=== PATIENT | male | born 1980 | race Caucasian/White ===

== ENCOUNTER 2018-09-23 15:31 | Emergency (ER) | payer MEDICAID ==
[~2018-09-23] VITALS: Ht 188 cm; Wt 89.3 kg
[2018-09-23] MEDS ORDERED: ONDANSETRON ODT 4 MG PO ONE (16:00)
[2018-09-23 16:42] LABS: BASOPHILS # (AUTO) 0.02 x10^3/uL (0-0.1); BASOPHILS % (AUTO) 0 % (0-1); EOSINOPHILS # (AUTO) 0.01 x10^3/uL (0-0.4); EOSINOPHILS % (AUTO) 0 % (1-7); LYMPHOCYTES # (AUTO) 1.17 x10^3/uL (1-3.4); LYMPHOCYTES % (AUTO) 19 % (22-44); MD NO; MEAN CORPUSCULAR HEMOGLOBIN 28.9 pg (27.5-34.5); MEAN CORPUSCULAR HGB CONC 33.9 g/dL (33.2-36.2); MEAN CORPUSCULAR VOLUME 85.2 fL (81-97); MEAN PLATELET VOLUME 7.7 fL (7.4-10.4); MONOCYTES # (AUTO) 0.71 x10^3/uL (0.2-0.8); MONOCYTES % (AUTO) 11 % (2-9); NEUTROPHILS % (AUTO) 70 % (42-75); PLATELET COUNT 255 x10^3/uL (130-400); RED BLOOD COUNT 5.66 x10^6/uL (4.38-5.82); RED CELL DISTRIBUTION WIDTH 13.2 % (9.4-14.8)
[2018-09-23] MEDS ORDERED: ONDANSETRON ODT 4 MG ONE (16:43)
[2018-09-23 16:49] LABS: ALBUMIN 3.8 g/dL (3.4-5.0); ANION GAP 8 mmol/L (5-15); CALCIUM 8.4 mg/dL (8.5-10.1); CHLORIDE 106 mmol/L (98-107)
[2018-09-23 16:54] LABS: ALANINE AMINOTRANSFERASE 30 U/L (12-78); ALKALINE PHOSPHATASE 87 U/L (45-117); BILIRUBIN,TOTAL 0.5 mg/dL (0.2-1.0); TOTAL PROTEIN 7.4 g/dL (6.4-8.2)
[2018-09-23] MEDS ORDERED: SODIUM CHLORIDE 0.9% 1,000ML IVBOLUS ONE (17:00)
[2018-09-23] MEDS ORDERED: PROMETHAZINE 25 MG/ML, 1ML IM ONE (17:00)
[2018-09-23] MEDS ORDERED: SODIUM CHLORIDE FLUSH 10ML SYR IVF ONE (17:00)
[2018-09-23 18:09] VITALS: BP 117/68
== END 2018-09-23 18:14 | disposition home or self-care (01) ==
LOC: ED 18:00
DX: A08.4 Viral intestinal infection, unspecified (principal); F17.200 Nicotine dependence, unspecified, uncomplicated
CPT/HCPCS: 36415; 80053; 83690; 85025; 96360; 99284; J7030; Q0162

== ENCOUNTER 2019-01-27 14:44 | Emergency (ER) | payer MEDICAID ==
[~2019-01-27] VITALS: Ht 188 cm; Wt 85.0 kg
[2019-01-27 16:16] LABS: RAPID INFLUENZA A Negative (Negative); RAPID INFLUENZA B Negative (Negative)
[2019-01-27 16:32] VITALS: BP 98/42
--- NOTE | 2019-01-27 16:32 | NUR ---
work note given with dc instruction pt understood vss stable
== END 2019-01-27 16:36 | disposition home or self-care (01) ==
LOC: ED 16:30
DX: J20.8 Acute bronchitis due to other specified organisms (principal); J02.9 Acute pharyngitis, unspecified; F17.200 Nicotine dependence, unspecified, uncomplicated
CPT/HCPCS: 71046; 87400; 99284

== ENCOUNTER 2019-10-03 13:21 | Emergency (ER) | payer MEDICAID, OTHER ==
[~2019-10-03] VITALS: Ht 188 cm; Wt 84.2 kg
[2019-10-03 14:00] VITALS: BP 91/64
[2019-10-03] MEDS ORDERED: KETOROLAC 30 MG/1 ML ONE (15:07)
[2019-10-03] MEDS ORDERED: KETOROLAC 30 MG/1 ML IM ONE (15:30)
== END 2019-10-03 15:15 | disposition home or self-care (01) ==
LOC: ED 15:00
DX: M77.9 Enthesopathy, unspecified (principal); M25.532 Pain in left wrist
CPT/HCPCS: 29260; 73110; 96372; 99283; J1885

== ENCOUNTER 2020-05-16 09:12 | Emergency (ER) | payer MEDICAID ==
[~2020-05-16] VITALS: Ht 188 cm; Wt 85.0 kg
[2020-05-16] MEDS ORDERED: LIDOCAINE-MPF 1%, 2ML ONE (10:55)
[2020-05-16] MEDS ORDERED: LIDOCAINE 1%, 10ML INFIL ONE (11:00)
--- NOTE | 2020-05-16 11:22 | NUR ---
SUSANNAH SCHMID AT BEDSIDE TO SUTURE PT.
[2020-05-16] MEDS ORDERED: NEOSPORIN OINT. PKT 1 PACKET ONE (11:30)
--- NOTE | 2020-05-16 12:07 | NUR ---
PT D/C'D PER ER PA-C ORDER. PT VERBALIZED UNDERSTANDING OF D/C INSTRUCTIONS, HAS ALL OWN BELONGINGS UPON D/C.
[2020-05-16 12:10] VITALS: BP 123/67
== END 2020-05-16 12:12 | disposition home or self-care (01) ==
LOC: ED 09:43
DX: S61.212A Laceration without foreign body of right middle finger without damage to nail, initial encounter (principal); X58.XXXA Exposure to other specified factors, initial encounter; Y93.89 Activity, other specified; Y92.488 Other paved roadways as the place of occurrence of the external cause; Y99.8 Other external cause status
CPT/HCPCS: 12001; 73140; 99283; J3490

== ENCOUNTER 2020-06-28 18:23 | Emergency (ER) | payer MEDICAID ==
[~2020-06-28] VITALS: Ht 188 cm; Wt 96.0 kg
--- NOTE | 2020-06-28 18:54 | NUR ---
PT CAME IN TODAY DUE TO LEFT SHOULDER PAIN, ORIGINATING AT SHOULDER, ALL MOVEMENT INCREASES PAIN, STARTED YESTERDAY AND GOT SIGNIFICANTLY WORSE TODAY. PT CMS INTACT, SENSATION INTACT, PULSES 2+, SKIN P/W/D, PT STATES PAIN IS A THROBBING 9/10 CURRENTLY,. PAIN IS STILL THERE WHEN NOT MOVING ARM BUT WORSENS WITH MOTION. IBUPROFEN OTC APPROXIMATELY 6 HOURS AGO, STATES "I TOOK LIKE THREE" PT PLACED ON SPO2/BP/ECG MONITORING. WCTM. WAITING FOR ERP EVAL.
--- NOTE | 2020-06-28 20:11 | NUR ---
Patient given discharge instructions and they have confirmed that they understand the instructions. Patient ambulatory with steady gait. nad, p/w/d. DENIES ADDITIONAL QUESTIONS OR NEEDS AT THIS TIME. NO BELONGINGS LEFT IN ROOM AFTER DC.
[2020-06-28 20:20] VITALS: BP 111/62
== END 2020-06-28 20:22 | disposition home or self-care (01) ==
LOC: ED 19:16
DX: M25.512 Pain in left shoulder (principal); R94.31 Abnormal electrocardiogram [ECG] [EKG]
CPT/HCPCS: 93005; 99283

== ENCOUNTER 2021-01-01 14:08 | Emergency (ER) | payer MEDICAID ==
[~2021-01-01] VITALS: Ht 190.5 cm; Wt 85.7 kg
[2021-01-01] MEDS ORDERED: KETOROLAC 30 MG/1 ML ONE (14:28)
[2021-01-01] MEDS ORDERED: SILVER SULF. CRM 1% , 25GM ONE (14:28)
[2021-01-01] MEDS ORDERED: DIPH,PERTUSS(ACELL),TET VAC/PF 0.5 ML IM-VACC ONE ×2 (14:29→14:30)
[2021-01-01] MEDS ORDERED: KETOROLAC 30 MG/1 ML IM ONE (14:30)
[2021-01-01] MEDS ORDERED: SILVER SULF. CRM 1%, 400GM TP ONE (14:30)
--- NOTE | 2021-01-01 14:35 | NUR ---
PT COME IN TODAY C/O RIGHT FOOT BURN. PT STATES AT APPROX 1200 TODAY HE SPILLED HOT GREASE ON HIS FOOT AT WORK. PROVIDER AT BEDSIDE. PLAN OF CARE DISCUSSED. MONITORS CONNECTED. CALL LIGHT W/IN REACH.
--- NOTE | 2021-01-01 14:35 | NUR ---
PROVIDER AT BEDSIDE FOR ASSESSMENT AND TO DISCUSS PLAN OF CARE.
[2021-01-01] MEDS ORDERED: SILVER SULF. CRM 1% , 25GM TP ONE (15:00)
--- NOTE | 2021-01-01 15:04 | NUR ---
ORDERED MEDICATIONS ADMINISTERED. SILVADENE CREAM APPLIED TO RIGHT TOES ORDERED. XERAFORM APPLIED. GAUZE APPLIED AND AREA WRAPPED. PT TOLERATED PROCEDURE W/O INCIDENT.
--- NOTE | 2021-01-01 15:05 | NUR ---
VACCINE INFORMATION SHEET GIVEN TO PT
--- NOTE | 2021-01-01 15:51 | NUR ---
CONTACTED PHARMACY REGARDING SILVADENE CREAM. DISCUSSED THAT THE PROVIDER WOULD LIKE TO HAVE THE 400GM DOSE IN ADDITION TO THE 25GM DOSE.
--- NOTE | 2021-01-01 16:12 | NUR ---
PT AMBULATED TO DISCHARGE W/STEADY GAIT. PT ENCOURAGED TO FOLLOWUP DISCUSSED. PT EDUCATED TO RETURN TO THE ED W/ WORSENING SYMPTOMS.
[2021-01-01 16:13] VITALS: BP 116/73
== END 2021-01-01 16:15 | disposition home or self-care (01) ==
LOC: ED 15:35
DX: T25.131A Burn of first degree of right toe(s) (nail), initial encounter (principal); T25.121A Burn of first degree of right foot, initial encounter; T31.0 Burns involving less than 10% of body surface; X08.8XXA Exposure to other specified smoke, fire and flames, initial encounter; Y93.89 Activity, other specified; Y92.89 Other specified places as the place of occurrence of the external cause; Y99.0 Civilian activity done for income or pay
CPT/HCPCS: 16020; 90471; 90715; 96372; 99284; J1885

== ENCOUNTER 2021-06-21 16:43 | Emergency (ER) | payer MEDICAID ==
[~2021-06-21] VITALS: Ht 188 cm; Wt 82.4 kg
[2021-06-21] MEDS ORDERED: CEFTRIAXONE 1,000 MG IM ONE (17:00)
--- NOTE | 2021-06-21 17:02 | NUR ---
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 UA COLLECTED AND SENT TO LAB.
--- NOTE | 2021-06-21 18:10 | NUR ---
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
[2021-06-21] MEDS ORDERED: CEFTRIAXONE 1,000 MG ONE (18:15)
--- NOTE | 2021-06-21 18:21 | NUR ---
PT MEDICATED PER EMAR, CONNECTED TO MONITORS. CALL LIGHT WITHIN REACH. AWAITING RECHECK
--- NOTE | 2021-06-21 18:47 | NUR ---
REPORT TO STEPHAN LEVI
[2021-06-21 19:00] VITALS: BP 126/70
--- NOTE | 2021-06-21 19:00 | NUR ---
FIRST ENCOUNTER WITH PATIENT. PATIENT LYING IN STRETCHER WATCHING TV. DENIES ANY NEEDS AT THIS TIME. AWAITING URINE RESULTS-PATIENT STATES HE ALREADY PROVIDED A URINE SAMPLE. VSS. BED IN LOW POSITION. CALL [place]GARA IN REACH. WILL CONTINUE TO MONITOR.
[2021-06-21 20:27] LABS: MICROSCOPIC INDICATED
--- NOTE | 2021-06-21 20:34 | NUR ---
Patient given discharge instructions and they have confirmed that they understand the instructions. Patient ambulatory with steady gait. NAD, all questions answered appropriately, denies additional needs at this time. No personal belongings left in room after discharge.
== END 2021-06-21 20:35 | disposition home or self-care (01) ==
LOC: ED 18:20
DX: N34.1 Nonspecific urethritis (principal)
CPT/HCPCS: 81001; 87086; 87491; 87591; 96372; 99283; J0696